=== PATIENT | female | born 1955 | race Caucasian/White ===

== ENCOUNTER → 2024-04-23 09:39 | Outpatient (REF) | payer MEDICARE, SELFPAY ==
[2024-04-23 10:59] LABS: % Basophils 0.8 % (0-2); % Eosinophils 1.3 % (0-6); % Immature Granulocytes 0.3 % (0-0.5); % Lymphocytes 36.9 % (20.5-51.1); % Monocytes 11.6 % (1.7-9.3); % Neutrophils 49.1 % (42.2-75.2); Absolute Eosinophils 0.1 10^3/uL (0-0.7); Absolute Lymphocytes 1.5 10^3/uL (1.2-3.4); Absolute Monocytes 0.5 10^3/uL (0.1-0.6); Hemoglobin 11.8 g/dL (12.0-16.0); Mean Corp Hgb Conc. 32.8 g/dL (33.0-37.0); Mean Corpuscular Hgb 31.6 pg (27.0-31.0); Mean Corpuscular Volume 96.3 fL (81.0-99.0); Nucleated Red Blood Cells % 0 %; Platelet Count 275 10^3/uL (130-400); Red Blood Cell Count 3.74 10^6/uL (4.20-5.40); Red Cell Dist. Width 14.3 % (11.5-14.5)
== END ==
LOC: REG 09:39
PROVIDERS: ATTENDING PHYSICIAN Emergency Medicine
DX: R79.89 Other specified abnormal findings of blood chemistry (principal)
CPT/HCPCS: 36415; 85025

== ENCOUNTER → 2024-07-22 08:04 | Outpatient (REF) | payer MEDICARE, SELFPAY | LOC: HWWDC 08:04 | PROVIDERS: ATTENDING PHYSICIAN Obstetrics & Gynecology; FAMILY PHYSICIAN Emergency Medicine | DX: Z12.31 Encounter for screening mammogram for malignant neoplasm of breast (principal) | CPT/HCPCS: 77063; 77067 ==

== ENCOUNTER → 2024-09-18 10:12 | Outpatient (REF) | payer MEDICARE, SELFPAY ==
[2024-09-20 23:50] LABS: IgA 105 mg/dl (70-400)
== END ==
LOC: REG 10:12
PROVIDERS: ATTENDING PHYSICIAN Internal Medicine Gastroenterology; FAMILY PHYSICIAN Emergency Medicine
DX: R11.0 Nausea (principal)
CPT/HCPCS: 36415; 82784; 83516

== ENCOUNTER → 2024-09-23 06:19 | Day surgery (SDC) | payer MEDICARE, SELFPAY | LOC: GI 06:19 | PROVIDERS: ATTENDING PHYSICIAN Internal Medicine Gastroenterology; FAMILY PHYSICIAN Emergency Medicine | DX: Z12.11 Encounter for screening for malignant neoplasm of colon (principal); K64.0 First degree hemorrhoids; D12.3 Benign neoplasm of transverse colon; D12.0 Benign neoplasm of cecum; K62.89 Other specified diseases of anus and rectum; K57.30 Diverticulosis of large intestine without perforation or abscess without bleeding | CPT/HCPCS: 45385; 45380; 88305; 88341; 88342 ==

== ENCOUNTER → 2024-09-26 09:20 | Outpatient (REF) | payer MEDICARE, SELFPAY ==
[2024-09-28 06:00] LABS: H. pylori Breath Test Negative (Negative)
== END ==
LOC: REG 09:20
PROVIDERS: ATTENDING PHYSICIAN Internal Medicine Gastroenterology; FAMILY PHYSICIAN Emergency Medicine
DX: R11.0 Nausea (principal)
CPT/HCPCS: 83013

== ENCOUNTER → 2024-10-23 14:26 | Outpatient (REF) | payer MEDICARE, SELFPAY | LOC: HWRAD 14:26 | PROVIDERS: ATTENDING PHYSICIAN Emergency Medicine | DX: M85.89 Other specified disorders of bone density and structure, multiple sites (principal) | CPT/HCPCS: 77080 ==

== ENCOUNTER → 2024-12-21 10:36 | Outpatient (REF) | payer MEDICARE, SELFPAY ==
[2024-12-21 11:40] LABS: Urine Albumin Negative (Neg - Trace); Urine Bilirubin Negative (Negative); Urine Character Clear (Clear); Urine Color Yellow; Urine Glucose Negative (Negative); Urine Ketone Negative (Negative); Urine Leukocyte Negative (Negative); Urine Nitrite Negative (Negative); Urine Occult Blood Negative (Negative); Urine Urobilinogen Negative (Neg - 1+)
[2024-12-21 11:44] LABS: % Eosinophils 1.5 % (0-6); % Immature Granulocytes 0.5 % (0-0.5); % Lymphocytes 34.6 % (20.5-51.1); % Monocytes 8.7 % (1.7-9.3); % Neutrophils 53.7 % (42.2-75.2); Absolute Basophils 0.1 10^3/uL (0-0.2); Absolute Eosinophils 0.1 10^3/uL (0-0.7); Absolute Monocytes 0.5 10^3/uL (0.1-0.6); Absolute Neutrophils 3.1 10^3/uL (1.4-6.5); Hematocrit 35.8 % (37.0-47.0); Hemoglobin 11.9 g/dL (12.0-16.0); Mean Corp Hgb Conc. 33.2 g/dL (33.0-37.0); Mean Corpuscular Hgb 32.5 pg (27.0-31.0); Mean Corpuscular Volume 97.8 fL (81.0-99.0); Mean Platelet Volume 11.3 fL (7.4-10.4); Nucleated Red Blood Cells % 0 %; Platelet Count 483 10^3/uL (130-400); Red Blood Cell Count 3.66 10^6/uL (4.20-5.40); Red Cell Dist. Width 14.1 % (11.5-14.5); White Blood Cell Count 5.8 10^3/uL (4.8-10.8)
[2024-12-21 12:06] LABS: Glycohemoglobin (HgbA1c) 5.4 % (4.0-5.6)
[2024-12-21 13:06] LABS: ALT (SGPT) 32 U/L (0-35); AST (SGOT) 32 U/L (14-36); Albumin 4.7 g/dl (3.5-5.0); Alkaline Phosphatase 48 U/L (38-126); Blood Urea Nitrogen 12 mg/dl (7-17); Calcium 9.7 mg/dl (8.4-10.2); Carbon Dioxide 31 mmol/L (22-30); Chloride 101 mmol/L (98-107); Glucose 96 mg/dl (70-99); HDL Cholesterol 89 mg/dl; LDL Cholesterol, Calculated 76 mg/dl; Potassium 4.7 mmol/L (3.5-5.1); Sodium 138 mmol/L (135-145); Total Bilirubin 1.6 mg/dl (0.2-1.3); Total Cholesterol 176 mg/dl (50-199); Total Protein 7.3 g/dl (6.3-8.2); Triglyceride 57 mg/dl (10-149); Very Low Density Lipoprotein 11 mg/dl (0-30); eGFR > 60.00
[2024-12-21 13:44] LABS: TSH Reflex To Free T4 1.21 uIU/ml (0.47-4.68)
== END ==
LOC: REG 10:36
PROVIDERS: ATTENDING PHYSICIAN Emergency Medicine
DX: Z00.00 Encounter for general adult medical examination without abnormal findings (principal); E78.00 Pure hypercholesterolemia, unspecified; K58.9 Irritable bowel syndrome, unspecified; R73.9 Hyperglycemia, unspecified
CPT/HCPCS: 36415; 80053; 80061; 81003; 83036; 84443; 85025

== ENCOUNTER → 2025-08-18 11:08 | Outpatient (REF) | payer MEDICARE, SELFPAY | LOC: WDC 11:08 | PROVIDERS: ATTENDING PHYSICIAN Obstetrics & Gynecology; FAMILY PHYSICIAN Emergency Medicine | DX: Z12.31 Encounter for screening mammogram for malignant neoplasm of breast (principal) | CPT/HCPCS: 77063; 77067 ==

== ENCOUNTER → 2025-09-29 09:55 | Outpatient (REF) | payer MEDICARE, SELFPAY ==
[2025-09-29 10:42] LABS: Hematocrit 23.7 % (37.0-47.0); Hemoglobin 7.8 g/dL (12.0-16.0); Mean Corp Hgb Conc. 32.9 g/dL (33.0-37.0); Mean Corpuscular Volume 100.0 fL (81.0-99.0); Platelet Count 1719 10^3/uL (130-400); Red Cell Dist. Width 19.4 % (11.5-14.5)
[2025-09-29 11:00] LABS: Nucleated Red Blood Cells % 0 %
[2025-09-29 16:48] LABS: ALT (SGPT) 29 U/L (0-35); AST (SGOT) 28 U/L (14-36); Albumin 4.8 g/dl (3.5-5.0); Alkaline Phosphatase 38 U/L (38-126); Blood Urea Nitrogen 14 mg/dl (7-17); Calcium 9.8 mg/dl (8.4-10.2); Carbon Dioxide 29 mmol/L (22-30); Chloride 100 mmol/L (98-107); Glucose 132 mg/dl (70-99); Potassium 6.2 mmol/L (3.5-5.1); Sodium 134 mmol/L (135-145); Total Protein 7.4 g/dl (6.3-8.2); eGFR > 60.00
== END ==
LOC: REG 09:55
PROVIDERS: ATTENDING PHYSICIAN Emergency Medicine
DX: R17 Unspecified jaundice (principal); D64.9 Anemia, unspecified
CPT/HCPCS: 36415; 80053; 82248; 85025

== ENCOUNTER 2025-09-29 22:47 | Emergency (ER) | payer MEDICARE, SELFPAY ==
[2025-09-29 22:49] VITALS: BP 147/71
[2025-09-29 23:20] VITALS: BP 138/68
[2025-09-30] VITALS: BP 121/52
[2025-09-30 00:12] LABS: Hematocrit 21.5 % (37.0-47.0); Hemoglobin 7.0 g/dL (12.0-16.0); Mean Corp Hgb Conc. 32.6 g/dL (33.0-37.0); Mean Corpuscular Volume 98.6 fL (81.0-99.0); Platelet Count 1479 10^3/uL (130-400); Red Cell Dist. Width 19.7 % (11.5-14.5)
--- NOTE | 2025-09-30 00:13 | ED.GENMED ---
History of Present Illness
General
Chief Complaint: Abnormal Lab Value
Source: patient
Exam Limitations: none
Time Seen by Provider: 09/29/25 23:12
History of Present Illness
History of Present Illness:
70-year-old female presents in referral from family doctor's office for elevated potassium levels as an outpatient. She has no complaints. She had routine blood drawn earlier today and she was called to come in for evaluation. She denies chest
pain shortness of breath lightheadedness. She notes a good appetite. She denies any issues with bowel or bladder function
Past History
Past History
ED Past Medical History: None
ED Past Surgical History: None
Social History
Tobacco: Non-smoker
Alcohol: Occasional
Drug: None
Personal:
Living: with family
Employment: Employed
Family History
Family History: Other (Noncontributory)
Phy Exam
Physical Exam
Physical Exam:
General: Well-appearing female no acute respiratory distress
HEENT normal cephalic atraumatic
Heart: Regular rate and rhythm
Lungs: Clear no wheeze
Abdomen is soft nontender
Extremities: No cyanosis or edema
Course
Orders/Labs/Results
Orders:
Orders
09/29/25 23:58
Complete Blood Count/With Diff Urgent
Comprehensive Metabolic Panel Urgent
Abnormal Lab Results
09/29/25
23:58
RBC 2.18 L 10^6/uL
(4.20-5.40)
Hgb 7.0 L g/dL
(12.0-16.0)
Hct 21.5 L %
(37.0-47.0)
MCH 32.1 H pg
(27.0-31.0)
MCHC 32.6 L g/dL
(33.0-37.0)
RDW 19.7 H %
(11.5-14.5)
Plt Count 1479 H 10^3/uL
(130-400)
MPV 10.5 H fL
(7.4-10.4)
Glucose 109 H mg/dl
(70-99)
Alkaline Phosphatase 34 L U/L
(38-126)
09/29/25 23:58
09/29/25 23:58
Vital Signs
Initial and Last Documented VS:
Initial Vital Signs
Temp Pulse Resp BP Pulse Ox
98.4 F 85 16 147/71 97
09/29/25 22:49 09/29/25 22:49 09/29/25 22:49 09/29/25 22:49 09/29/25 22:49
Last Documented Vital Signs
Temp Pulse Resp BP Pulse Ox
98.4 F 75 18 121/52 98
09/29/25 22:49 09/30/25 00:15 09/30/25 00:15 09/30/25 00:00 09/30/25 00:15
MDM/Problems Addressed
Differential Diagnosis Includes:
Patient sent in for abnormal potassium. This was noted to be high as an outpatient. Patient has no complaints. Will recheck the potassium level. Labs ordered
*Pulse Oximetry
SaO2: 98
Oxygen Mode of Delivery: Room air
Patient hypoxic: no
*Critical Care Note
Total Time (30-74mins, 75-104mins- exclusive of procedures): Not Applicable
Update Note
Update Note:
Potassium returned as normal today. She has no complaints of shortness of breath lightheadedness or chest pain. Incidentally noted that her hemoglobin was 7. She denies any dark stools. She is not anticoagulated. I reviewed these results with
the patient as well as her thrombocytosis which seems new. She states she has seen a it support specialist in the past for her low white blood cell count but has never been told she is anemic. Offered admission for further anemic workup however given the
asymptomatic nature of this she wishes to go home and follow-up with her doctor. Strict return precautions were given.
ED Attending Note
-
Portions of this chart may have been created with voice recognition software.� Occasional wrong word or��sound alike� substitutions may have occurred due to the inherent limitations of voice recognition software.
Discharge Plan
Departure
Patient Disposition: Home (Routine Discharge)
Date of Disposition: 09/30/25
Time of Disposition: 00:32
Patient with high blood pressure during this ER visit?: No
Discharge Problem:
Anemia, Thrombocytosis
Prescriptions:
No Action
ibuprofen 600 MG tablet
600 mg PO Q6H Qty: 30 0RF
hydrocodone-acetaminophen [Vicodin] 1 EACH tablet
1 ea PO Q4 PRN (Reason: pain) Qty: 14 0RF
Referrals:
UNKNOWN - PT DOES,NOT KNOW [Family Provider]
Activity Restrictions/Additional Instructions:
As discussed, your potassium was normal here however your hemoglobin is low. You are anemic. You also have elevated platelet counts. Please follow-up with your doctor for recheck of these values. Return here for worsening symptoms otherwise
Interventions
Interventions:
*Risk Screen - Suicide Last Done: 09/29/25 22:52
*General Assessment Last Done: 09/29/25 22:52
*Neglect/Abuse Screening Last Done: 09/29/25 22:52
*ED- Fall Risk Assessment Last Done: 09/29/25 22:52
*ED COVID-19 Vaccine History Last Done: 09/29/25 22:52
*ED Influenza Vaccine History Last Done: 09/29/25 22:52
Discharge Date and Time
Print Language: MALTESE
[2025-09-30 00:20] LABS: ALT (SGPT) 26 U/L (0-35); AST (SGOT) 24 U/L (14-36); Albumin 4.2 g/dl (3.5-5.0); Alkaline Phosphatase 34 U/L (38-126); Blood Urea Nitrogen 15 mg/dl (7-17); Calcium 9.6 mg/dl (8.4-10.2); Carbon Dioxide 29 mmol/L (22-30); Chloride 103 mmol/L (98-107); Glucose 109 mg/dl (70-99); Potassium 4.7 mmol/L (3.5-5.1); Sodium 137 mmol/L (135-145); Total Protein 6.6 g/dl (6.3-8.2); eGFR > 60.00
[2025-09-30 01:05] LABS: Nucleated Red Blood Cells % 0 %
[2025-09-30 01:08] LABS: Anisocytosis 1+; Normal RBC Morphology No
[2025-09-30 01:10] LABS: Hypochromasia 1+
[2025-09-30 01:11] LABS: Polychromasia Occasional; Target Cells 1+
[2025-09-30 01:12] LABS: Ovalocytes 1+
== END 2025-09-30 00:57 | disposition home or self-care (01) ==
LOC: EMR 22:47
PROVIDERS: Physician Assistant; EMERGENCY PHYSICIAN Emergency Medicine
DX: D64.9 Anemia, unspecified (principal); D75.839 Thrombocytosis, unspecified
CPT/HCPCS: 99283; 80053; 85025

== ENCOUNTER → 2025-10-01 07:28 | Outpatient (REF) | payer MEDICARE, SELFPAY | LOC: RAD 07:28 | PROVIDERS: ATTENDING PHYSICIAN Nurse Practitioner Family; FAMILY PHYSICIAN Emergency Medicine | DX: R60.0 Localized edema (principal); R01.1 Cardiac murmur, unspecified | CPT/HCPCS: 93306; 93970 ==

== ENCOUNTER → 2025-10-04 07:34 | Outpatient (REF) | payer MEDICARE, SELFPAY ==
[2025-10-04 08:28] LABS: Hematocrit 23.9 % (37.0-47.0); Hemoglobin 7.8 g/dL (12.0-16.0); Mean Corp Hgb Conc. 32.6 g/dL (33.0-37.0); Mean Corpuscular Volume 100.0 fL (81.0-99.0); Nucleated Red Blood Cells % 0 %; Platelet Count 1832 10^3/uL (130-400); Red Cell Dist. Width 19.3 % (11.5-14.5)
[2025-10-04 08:36] LABS: Iron 203 ug/dl (37-170)
[2025-10-04 08:47] LABS: Total Iron Binding Capacity 321 ug/dl (265-497)
[2025-10-04 11:30] LABS: Anisocytosis 1+; Hypochromasia 1+; Macrocytosis 1+; Normal RBC Morphology No
[2025-10-04 11:31] LABS: Ovalocytes 1+; Stomatocytes 1+; Target Cells 1+
== END ==
LOC: REG 07:34
PROVIDERS: ATTENDING PHYSICIAN Emergency Medicine
DX: D64.9 Anemia, unspecified (principal); D75.839 Thrombocytosis, unspecified
CPT/HCPCS: 83540; 83550; 84155; 84165; 85025

== ENCOUNTER 2025-10-05 12:59 | Emergency (ER) | payer MEDICARE, SELFPAY ==
[2025-10-05 13:01] VITALS: BP 163/77
[2025-10-05 14:43] VITALS: BP 158/56
[2025-10-05 15:00] VITALS: BP 117/57
[2025-10-05 15:06] LABS: ALT (SGPT) 27 U/L (0-35); AST (SGOT) 25 U/L (14-36); Albumin 4.9 g/dl (3.5-5.0); Alkaline Phosphatase 41 U/L (38-126); Blood Urea Nitrogen 14 mg/dl (7-17); Calcium 9.8 mg/dl (8.4-10.2); Carbon Dioxide 29 mmol/L (22-30); Chloride 97 mmol/L (98-107); Glucose 115 mg/dl (70-99); LDH 255 U/L (120-246); Potassium 5.5 mmol/L (3.5-5.1); Sodium 132 mmol/L (135-145); Total Protein 7.7 g/dl (6.3-8.2); Uric Acid 3.2 mg/dl (2.5-6.2); eGFR > 60.00
[2025-10-05 15:15] VITALS: BP 117/57
[2025-10-05 15:20] LABS: Hematocrit 23.9 % (37.0-47.0); Hemoglobin 8.0 g/dL (12.0-16.0); Mean Corp Hgb Conc. 33.5 g/dL (33.0-37.0); Mean Corpuscular Volume 104.4 fL (81.0-99.0); Nucleated Red Blood Cells % 0 %; Red Cell Dist. Width 18.9 % (11.5-14.5); Reticulocyte Count 2.2 % (0.4-2.8)
[2025-10-05 15:46] LABS: Platelet Count 1835 10^3/uL (130-400)
--- NOTE | 2025-10-05 16:10 | ED.GENMED ---
History of Present Illness
General
Chief Complaint: Abnormal Lab Value
Time Seen by Provider: 10/05/25 14:20
History of Present Illness
History of Present Illness:
70-year-old female presents the emergency department for evaluation of abnormal labs. She was seen in the emergency department last week where she was noted to be anemic with thrombocytosis. She declined additional inpatient workup however which
continued outpatient workup through her primary care physician, she was noted to have continued anemia and worsening thrombocytosis. She was sent back to the ED for consideration of transfusion. She reports feeling mildly fatigued and reports a
dry cough as well. Denies any fevers or night sweats, denies weight loss, chest pain, dyspnea, nausea, vomiting, leg swelling, or rashes. She denies any tobacco use but does admit to daily alcohol use 2-3 drinks daily for quite some time. No
history of intra-abdominal surgery.
Past History
Past History
ED Past Medical History: None
ED Past Surgical History: None
Social History
Tobacco: Non-smoker
Alcohol: Occasional
Drug: None
Personal:
Living: with family
Employment: Employed
Family History
Family History: Other (Noncontributory)
Review of Systems
Review of Systems
Allergies reviewed?: Yes
All Other Systems: ROS reviewed and negative except as documented in HPI and ROS
Phy Exam
Physical Exam
Physical Exam:
GEN: Well appearing, NAD, WDWN
Eyes: PERRLA, EOMs intact, no scleral icterus
HENT: NCAT, oral mucosa moist
Lungs: CTAB, no wheezes, rales, rhonchi, normal chest wall excursion
Cardiac: Mildly tachycardic, regular, no murmur
Abdomen: S, NT, ND, NABS, no masses or no palpable splenomegaly
Neuro: AO x 3
MSK: No gross deformity or ecchymosis. No edema. No digital clubbing
Skin: No rashes, petechiae. Normal color, no pallor or jaundice.
Psych: Calm, cooperative, proper hygiene
Course
Orders/Labs/Results
Orders:
Orders
10/05/25 14:39
Type+Screen Urgent
B12 [Vitamin B12] Urgent
Complete Blood Count/With Diff Urgent
Comprehensive Metabolic Panel Urgent
Folate Urgent
LDH Urgent
Reticulocyte Count Urgent
Uric Acid Urgent
10/05/25 15:52
Acetaminophen [Tylenol] 1,000 mg PO NOW STA
CR Chest - 2 Views Urgent
Comment:
Reason For Exam: fever
10/05/25 16:05
Lactic Acid Q4H
Comment: CANCEL 2nd LACTIC ACID IF 1st LACTIC ACID IS LESS THAN 2
Urinalysis Reflex To Culture Urgent
Date Specimen was Collected: 10/05/25
Time Specimen was Collected: 15:57
Urine Microscopic Reflex Cult Urgent
Blood Culture Q30M
STIVEN Source: Blood/Venous
Specimen Description:
10/05/25 16:15
COVID-19 Antigen Urgent
Source: Nasal Swab
Blood Culture Q30M
STIVEN Source: Blood/Venous
Specimen Description:
Influenza A+B Rapid Molecular Urgent
STIVEN Source: Nasal Swab
Specimen Description:
10/05/25 20:00
Lactic Acid Q4H
Comment: CANCEL 2nd LACTIC ACID IF 1st LACTIC ACID IS LESS THAN 2
Abnormal Lab Results
10/05/25 10/05/25
14:39 16:05
WBC 12.8 H 10^3/uL
(4.8-10.8)
RBC 2.29 L 10^6/uL
(4.20-5.40)
Hgb 8.0 L g/dL
(12.0-16.0)
Hct 23.9 L %
(37.0-47.0)
MCV 104.4 H fL
(81.0-99.0)
MCH 34.9 H pg
(27.0-31.0)
RDW 18.9 H %
(11.5-14.5)
Plt Count 1835 H 10^3/uL
(130-400)
MPV 10.6 H fL
(7.4-10.4)
Abs Immat Gran (auto) 0.1 H 10^3/uL
(0-0.05)
Absolute Neuts (auto) 10.3 H 10^3/uL
(1.4-6.5)
Absolute Monos (auto) 0.8 H 10^3/uL
(0.1-0.6)
Absolute Basos (auto) 0.3 H 10^3/uL
(0-0.2)
Neutrophils % 80.4 H %
(42.2-75.2)
Lymphocytes % 9.7 L %
(20.5-51.1)
Basophils % 2.2 H %
(0-2)
Sodium 132 L mmol/L
(135-145)
Potassium 5.5 H mmol/L
(3.5-5.1)
Chloride 97 L mmol/L
(98-107)
Glucose 115 H mg/dl
(70-99)
Total Bilirubin 2.0 H mg/dl
(0.2-1.3)
Lactate Dehydrogenase 255 H U/L
(120-246)
Vitamin B12 > 1000 H pg/ml
(239-931)
Folate > 20.0 H ng/ml
(2.76-20)
Urine Bacteria (Reflex) Few A
(Negative)
Urine Albumin (Reflex) 1+ A
(Neg - Trace)
10/05/25 14:39
10/05/25 14:39
Vital Signs
Initial and Last Documented VS:
Initial Vital Signs
Temp Pulse Resp BP Pulse Ox
97.8 F 113 16 163/77 96
10/05/25 13:01 10/05/25 13:01 10/05/25 13:01 10/05/25 13:01 10/05/25 13:01
Last Documented Vital Signs
Temp Pulse Resp BP Pulse Ox
100.8 F H 102 18 117/57 96
10/05/25 15:15 10/05/25 15:15 10/05/25 15:15 10/05/25 15:15 10/05/25 16:12
MDM/Problems Addressed
MDM/Problems Addressed:
Gradual downtrend of hemoglobin and uptrend in platelet count since show and urinary highly suggestive of a myeloproliferative disorder. She was noted have a fever here today but given the dry cough I suspect this is a viral etiology and not
correlating with her underlying malignant condition. I did discuss the case with heme-onc who feels remainder of workup can be completed as an outpatient. She is comfortable with the plan. PCP updated as well. Doubt tick borne illness given
thrombocytosis and lack of signs of hemolysis.
*Pulse Oximetry
SaO2: 96
Oxygen Mode of Delivery: Room air
Patient hypoxic: no
*Critical Care Note
Total Time (30-74mins, 75-104mins- exclusive of procedures): Not Applicable
ED Attending Note
-
Portions of this chart may have been created with voice recognition software.� Occasional wrong word or��sound alike� substitutions may have occurred due to the inherent limitations of voice recognition software.
Discharge Plan
Departure
Patient Disposition: Home (Routine Discharge)
Date of Disposition: 10/05/25
Time of Disposition: 16:58
Patient with high blood pressure during this ER visit?: No
Discharge Problem:
Anemia, Thrombocytosis, Fever
Prescriptions:
No Action
ibuprofen 600 MG tablet
600 mg PO Q6H Qty: 30 0RF
hydrocodone-acetaminophen [Vicodin] 1 EACH tablet
1 ea PO Q4 PRN (Reason: pain) Qty: 14 0RF
Referrals:
Anaya Perez MD [Family Provider, Internal Medicine]
Kimberly Oscar MD [Active, Oncology]
Activity Restrictions/Additional Instructions:
It is extremely important that you follow-up with the hematology oncology office listed on your paperwork. Please call them tomorrow and inform the front desk officer that it is an ER follow-up. I have made your primary care physician aware as well. You
may take acetaminophen for the fever but avoid ibuprofen for the time being. If you develop worsening symptoms of fatigue, vomiting, night sweats, or weight loss return to the emergency department immediately.
If your fever lasts longer than 5 days and you are still waiting on a oncology follow-up visit please return to the ER for expedited workup
If your blood culture test returned positive we will contact you to return to the ER immediately
Interventions
Interventions:
*Risk Screen - Suicide Last Done: 10/05/25 13:01
*General Assessment Last Done: 10/05/25 14:45
*Neglect/Abuse Screening Last Done: 10/05/25 13:01
*ED- Fall Risk Assessment Last Done: 10/05/25 14:19
*ED COVID-19 Vaccine History Last Done: 10/05/25 14:19
*ED Influenza Vaccine History Last Done: 10/05/25 14:19
Discharge Date and Time
Print Language: SERBIAN
[2025-10-05 16:12] LABS: Folate > 20.0 ng/ml (2.76-20); Vitamin B12 > 1000 pg/ml (239-931)
[2025-10-05 16:13] LABS: Urine Character Clear (Clear)
[2025-10-05] MEDS: TYLENOL 1000 MG PO (16:17)
[2025-10-05 16:18] VITALS: BP 129/61
[2025-10-05 16:27] LABS: Urine Red Blood Cell 0-2 /HPF (0-2); Urine White Cell 0-2 /HPF (0-5)
[2025-10-05 17:17] VITALS: BP 141/54
[2025-10-05 17:36] LABS: COVID-19 Antigen Negative (Negative)
== END 2025-10-05 17:49 | disposition home or self-care (01) ==
LOC: EMR 12:59
PROVIDERS: Physician Assistant; EMERGENCY PHYSICIAN Student in an Organized Health Care Education/Training Program; FAMILY PHYSICIAN Emergency Medicine
DX: D64.9 Anemia, unspecified (principal); D75.839 Thrombocytosis, unspecified; R50.9 Fever, unspecified
CPT/HCPCS: 99283; 71046; 80053; 81003; 81015; 82607; 82746; 83605; 83615; 84550; 85025; 85045; 86850; 86900; 86901; 87040; 87502; 87811

== ENCOUNTER → 2025-10-11 14:40 | Outpatient (REF) | payer MEDICARE, SELFPAY | LOC: REG 14:40 | PROVIDERS: ATTENDING PHYSICIAN Internal Medicine Hematology & Oncology; FAMILY PHYSICIAN Nurse Practitioner Family | DX: D70.9 Neutropenia, unspecified (principal) | CPT/HCPCS: 36415 ==

== ENCOUNTER → 2025-10-25 08:33 | Outpatient (REF) | payer MEDICARE, SELFPAY ==
[2025-10-25 09:42] LABS: Hematocrit 23.9 % (37.0-47.0); Hemoglobin 7.6 g/dL (12.0-16.0); Mean Corp Hgb Conc. 31.8 g/dL (33.0-37.0); Mean Corpuscular Volume 106.2 fL (81.0-99.0); Platelet Count 2046 10^3/uL (130-400); Red Cell Dist. Width 20.0 % (11.5-14.5)
[2025-10-25 10:06] LABS: Nucleated Red Blood Cells % 0 %
== END ==
LOC: REG 08:33
PROVIDERS: ATTENDING PHYSICIAN Internal Medicine Hematology & Oncology; FAMILY PHYSICIAN Emergency Medicine
DX: D70.9 Neutropenia, unspecified (principal)
CPT/HCPCS: 36415; 85025

== ENCOUNTER → 2025-10-27 07:04 | Outpatient (REF) | payer MEDICARE, SELFPAY ==
[2025-10-27] VITALS (9 sets, daily range): BP systolic 70–123; BP diastolic 51–80
[2025-10-27] MEDS: ATIVAN 0.5 MG PO (07:36)
[2025-10-27 07:40] LABS: INR 1.28; PT 15.8 Sec (11.4-14.6)
[2025-10-27 07:44] LABS: Hematocrit 23.1 % (37.0-47.0); Hemoglobin 7.2 g/dL (12.0-16.0); Mean Corp Hgb Conc. 31.2 g/dL (33.0-37.0); Mean Corpuscular Volume 104.5 fL (81.0-99.0); Platelet Count 1934 10^3/uL (130-400); Red Cell Dist. Width 20.6 % (11.5-14.5)
[2025-10-27 08:21] LABS: Normal RBC Morphology No
[2025-10-27 08:22] LABS: Anisocytosis 1+; Hypochromasia 1+; Nucleated Red Blood Cells % 0 %; Ovalocytes 2+; Polychromasia 1+; Target Cells 1+
[2025-10-27 08:23] LABS: Acanthocytes FEW
== END ==
LOC: RADI 07:04
PROVIDERS: ATTENDING PHYSICIAN Internal Medicine Hematology & Oncology; FAMILY PHYSICIAN Emergency Medicine
DX: D70.9 Neutropenia, unspecified (principal); D75.839 Thrombocytosis, unspecified; D64.9 Anemia, unspecified
CPT/HCPCS: 36415; 38222; 77012; 85025; 85610; 88305; 88311; 88312; 88313